=== PATIENT | female | born 1960 | race Caucasian/White ===

== ENCOUNTER 2021-09-28 10:51 | Observation (INO) | payer OTHER ==
[~2021-09-28] VITALS: Ht 172.7 cm; Wt 74.8 kg
[~2021-09-28 10:51] MED LIST: ASPIR 8181 MG PO; BENTYL 10MG CAP10 MG PO; LODINE CAP 300300 MG PO; MINIVELLE1 EAC1 TD; PHENERGAN 25 MG25 M1 PO; POTASSIUM CHLO10 MEQ PO; PRILOSEC OTC20 MG PO; SEROQUEL25 MG PO; SYNTHROID75 MCG PO; ZOFRAN ODT 4 MG4 MG PO; ZOFRAN ODT 4 MG4 MG SL
[2021-09-28 15:47] LABS: RED BLOOD COUNT 4.39 M/UL (4.00-5.10)
[2021-09-28 16:14] LABS: BUN/CREATININE RATIO 13 (0-10)
[2021-09-29 07:22] LABS: HEMOGLOBIN 12.1 gm/dl (12.3-15.3)
[2021-09-29 07:31] LABS: RED BLOOD COUNT 3.81 M/UL (4.00-5.10); WHITE BLOOD COUNT 9.1 K/UL (4.5-11.0)
[2021-09-29 07:42] LABS: BUN/CREATININE RATIO 11 (0-10)
[2021-09-29] MEDS ORDERED: MAGNESIUM250 M1 PO (09:31)
[2021-09-29] MEDS ORDERED: VITAMIN D3250 MC2 PO (09:31)
[2021-09-29] MEDS ORDERED: FISH OIL 1,0001 EAC1 PO (09:32)
[2021-09-29] MEDS ORDERED: HYDROCODON-ACE1 EAC4 PO (15:15)
== END 2021-09-29 17:37 | disposition home or self-care (01) ==
LOC: ER1 10:51 → CCU 18:40 → CDU 18:40 → CCU 09-29 00:03
PROVIDERS: Emergency Medicine; ADMIT Surgery
DX: K35.30 Acute appendicitis with localized peritonitis, without perforation or gangrene (principal); E03.9 Hypothyroidism, unspecified; Z20.822 Contact with and (suspected) exposure to COVID-19
CPT/HCPCS: 36415; 80048; 80053; 81001; 83605; 83690; 85025; 87040; 87077; 87086; 87186; 93005; 96374; 96375; 96376; 99285; C1729; G0378; J1100; J1885; J2001; J2250; J2270; J2405; J2543; J2704; J2710; J3010; Q9967; U0002